=== PATIENT | female | born 1945 | race Caucasian/White ===

== ENCOUNTER 2017-05-27 13:33 | Emergency (ER) | payer MEDICARE, BC ==
[2017-05-27 13:50] VITALS: BP 140/68
--- NOTE | 2017-05-27 14:00 | UC ---
Throat Pain/Nasal Jabari HPI - HPI Summary HPI Summary: 72 YEAR OLD FEMALE PRESENTS WITH COMPLAINS OF COUGH AND CONGESTION. - History of Current Complaint Chief Complaint: UCRespiratory Stated Complaint: COUGH,SINUSES Time Seen by Provider: 05/27/17 13:59 - Allergies/Home Medications Allergies/Adverse Reactions: Allergies Allergy/AdvReac Type Severity Reaction Status Date / Time Ibuprofen [From Motrin] Allergy Severe Rash Unverified 05/27/17 13:50 Ciprofloxacin [From Cipro] Allergy body aches Verified 05/27/17 13:50 months latter PMH/Surg Hx/FS Hx/Imm Hx Previously Healthy: Yes - Surgical History Surgical History: Yes Surgery Procedure, Year, and Place: hysterectomy, lumpectomy, gallbladder, tonsillectomy - Family History Known Family History: Positive: Hypertension - Social History Alcohol Use: Weekly Alcohol Amount: glass of wine a day Substance Use Type: None Smoking Status (MU): Former Smoker When Did the Patient Quit Smoking/Using Tobacco: 1987 Review of Systems Constitutional: Negative Skin: Negative Eyes: Negative ENT: Sore Throat, Nasal Discharge, Sinus Congestion, Sinus Pain/Tenderness Respiratory: Cough Cardiovascular: Negative Gastrointestinal: Negative Genitourinary: Negative Motor: Negative Neurovascular: Negative Musculoskeletal: Negative Neurological: Negative Psychological: Negative All Other Systems Reviewed And Are Negative: Yes Physical Exam Triage Information Reviewed: Yes Vital Signs: Initial Vital Signs Temp 37.7 C 05/27/17 13:44 Pulse 73 05/27/17 13:44 Resp 18 05/27/17 13:44 BP 140/68 05/27/17 13:44 Pulse Ox 98 05/27/17 13:44 Eye Exam: Normal ENT: Positive: Pharyngeal erythema, Nasal congestion, Nasal drainage Dental Exam: Normal Neck exam: Normal Neck: Positive: 1 Respiratory: Positive: Rhonchi Cardiovascular Exam: Normal Abdominal Exam: Normal Musculoskeletal Exam: Normal Neurological Exam: Normal Psychological Exam: Normal Skin Exam: Normal Throat Pain/Nasal Course/Dx - Differential Dx/Diagnosis Provider Diagnoses: ALLERGIC RHINNITIS Discharge - Discharge Plan Condition: Stable Disposition: HOME Prescriptions: Azithromyxin BLAIRE (NF) [Z-Blaire (Zithromax) 250 mg tabs #6] 2 tab PO .TODAY, THEN 1 DAILY #6 tab Guaifenesin-Codeine [Cheratussin AC] 5 syp PO QID PRN #100 syp MDD 20 PRN Reason: Cough LoraTADine TAB(NF) [Claritin 10 MG TAB(NF)] 10 mg PO DAILY #30 tab Patient Education Materials: Sinusitis (ED), Acute Bronchitis (ED) Referrals: Brandi Rai MD [Primary Care Provider] - If Needed
--- NOTE | 2017-05-27 15:19 | UC ---
Progress - Progress Note Progress Note: asked to resend script for cough med in because it didn't go through resent
== END 2017-05-27 14:19 | disposition home or self-care (01) ==
LOC: UCCORT 13:33
DX: J30.9 Allergic rhinitis, unspecified (principal); Z88.6 Allergy status to analgesic agent; Z88.1 Allergy status to other antibiotic agents; Z87.891 Personal history of nicotine dependence
CPT/HCPCS: 99212; G0463

== ENCOUNTER 2018-03-22 13:57 | Emergency (ER) | payer MEDICARE, BC ==
[2018-03-22 14:17] VITALS: BP 138/59
--- NOTE | 2018-03-22 14:33 | UC ---
Throat Pain/Nasal Jabari HPI - HPI Summary HPI Summary: sinus pain and pressure x 1 week + nasal congestion , pnd, no cough no fever , no chills - History of Current Complaint Chief Complaint: UCGeneralIllness Stated Complaint: SINUS COMPLAINT Time Seen by Provider: 03/22/18 14:12 Hx Obtained From: Patient Onset/Duration: Gradual Onset, Lasting Days - 7, Still Present Severity: Moderate Pain Intensity: 0 Cough: None Associated Signs & Symptoms: Positive: Sinus Discomfort, Nasal Discharge. Negative: Dysphagia, FB Sensation, Drooling, Wheezing, Hoarseness, Fever, Vomiting, Rash - Allergies/Home Medications Allergies/Adverse Reactions: Allergies Allergy/AdvReac Type Severity Reaction Status Date / Time ibuprofen Allergy Intermediate Rash Verified 03/22/18 14:18 ciprofloxacin AdvReac Intermediate body aches Verified 03/22/18 14:18 PMH/Surg Hx/FS Hx/Imm Hx Previously Healthy: Yes - Surgical History Surgical History: Yes Surgery Procedure, Year, and Place: no hip or back surgs... - Family History Known Family History: Positive: Hypertension - Social History Alcohol Use: Weekly Alcohol Amount: glass of wine a day Substance Use Type: None Smoking Status (MU): Former Smoker When Did the Patient Quit Smoking/Using Tobacco: 1987 Review of Systems Constitutional: Negative Skin: Negative Eyes: Negative ENT: Nasal Discharge, Sinus Congestion, Sinus Pain/Tenderness Respiratory: Negative Is Patient Immunocompromised?: No All Other Systems Reviewed And Are Negative: Yes Physical Exam Triage Information Reviewed: Yes Appearance: Well-Appearing, No Pain Distress, Well-Nourished Vital Signs: Initial Vital Signs Temp 99.5 F 03/22/18 14:12 Pulse 73 03/22/18 14:12 Resp 16 03/22/18 14:12 BP 138/59 03/22/18 14:12 Pulse Ox 100 03/22/18 14:12 Vital Signs Reviewed: Yes Eye Exam: Normal Eyes: Positive: Conjunctiva Clear ENT: Positive: Normal ENT inspection, Hearing grossly normal, Pharynx normal, Nasal drainage, Sinus tenderness Neck exam: Normal Neck: Positive: Supple, Nontender, No Lymphadenopathy Respiratory: Positive: Chest non-tender, Lungs clear, Normal breath sounds Cardiovascular: Positive: RRR, No Murmur, Pulses Normal Throat Pain/Nasal Course/Dx - Differential Dx/Diagnosis Provider Diagnoses: sinusitis Discharge - Sign-Out/Discharge Documenting (check all that apply): Discharge/Admit/Transfer - Discharge Plan Condition: Stable Disposition: HOME Prescriptions: Amoxicillin/Clavulanate TAB* [Augmentin TAB 875*] 875 mg PO BID #20 tab Fluticasone NASAL SPRAY 50MCG* [Flonase NASAL SPRAY 50MCG*] 2 spray BOTH NARES DAILY #1 btl Patient Education Materials: Sinusitis (ED) Referrals: Brandi Rai MD [Primary Care Provider] - If Needed - Billing Disposition and Condition Condition: STABLE Disposition: HOME
== END 2018-03-22 14:39 | disposition home or self-care (01) ==
LOC: UCCORT 13:57
DX: J32.9 Chronic sinusitis, unspecified (principal); Z88.6 Allergy status to analgesic agent; Z88.3 Allergy status to other anti-infective agents; Z82.49 Family history of ischemic heart disease and other diseases of the circulatory system; Z87.891 Personal history of nicotine dependence
CPT/HCPCS: 99212; G0463

== ENCOUNTER 2018-04-21 14:41 | Emergency (ER) | payer MEDICARE, BC ==
--- NOTE | 2018-04-21 15:00 | UC ---
Complaint Female HPI - HPI Summary HPI Summary: 73 yo female presents with urinary burning and frequency for the last 4-5 days. Says that her last UTI was about 3 years ago and this feels the same. She denies fever, chills, abdominal pain, n/v/d/c, vaginal bleeding or discharge. - History Of Current Complaint Stated Complaint: URINARY Time Seen by Provider: 04/21/18 15:00 Hx Obtained From: Patient Onset/Duration: Gradual Onset Timing: Constant Severity Initially: Mild Severity Currently: Mild Pain Intensity: 3 Pain Scale Used: 0-10 Numeric - Allergies/Home Medications Allergies/Adverse Reactions: Allergies Allergy/AdvReac Type Severity Reaction Status Date / Time ibuprofen Allergy Intermediate Rash Verified 04/21/18 14:59 ciprofloxacin AdvReac Intermediate body aches Verified 04/21/18 14:59 Home Medications: Home Medications LoraTADine TAB(NF) [Claritin 10 MG TAB(NF)] 10 mg PO DAILY PRN 04/21/18 [ History Confirmed 04/21/18] PMH/Surg Hx/FS Hx/Imm Hx Cardiovascular History: Hypertension - Surgical History Surgical History: Yes Surgery Procedure, Year, and Place: no hip or back surgs... - Family History Known Family History: Positive: Hypertension - Social History Occupation: Retired Lives: With Family Alcohol Use: Weekly Alcohol Amount: glass of wine a day Substance Use Type: None Smoking Status (MU): Former Smoker When Did the Patient Quit Smoking/Using Tobacco: 1987 Review of Systems Constitutional: Negative Skin: Negative Respiratory: Negative Cardiovascular: Negative Gastrointestinal: Negative Genitourinary: Dysuria, Frequency, Urgency Neurovascular: Negative Neurological: Negative Psychological: Negative All Other Systems Reviewed And Are Negative: Yes Physical Exam - Summary Physical Exam Summary: GENERAL: NAD. WDWN. No pain distress. SKIN: No rashes, sores, lesions, or open wounds. NECK: Supple. Nontender. No lymphadenopathy. CHEST: CTAB. No r/r/w. No accessory muscle use. Breathing comfortably and in no distress. CV: Pulses intact. Brisk cap refill. ABDOMEN: Soft. NTTP. No distention or guarding. No organomegaly. No CVA tenderness. Bowel sounds present NEURO: Alert. CN II-XII grossly intact. PSYCH: Age appropriate behavior. Triage Information Reviewed: Yes Vital Signs: Vital Signs: Temp Pulse Resp BP Pulse Ox 98.4 F 76 18 128/78 97 04/21/18 15:01 04/21/18 15:01 04/21/18 15:01 04/21/18 15:01 04/21/18 15:01 Laboratory Tests 04/21/18 15:17 POC Urine Color Yellow POC Urine Clarity Cloudy POC Urine pH 5.5 POC Ur Specif [place] 1.015 POC Urine Protein Negative POC Ur Glucose (UA) Negative POC Urine Ketones Negative POC Urine Blood Trace-intact A POC Urine Nitrite Negative POC Urine Bilirubin Negative POC Urine Urobilinogen 0.2 POC U Leukocyte Esteras 2+ A Complaint Female Dx - Course Course Of Treatment: UA with signs of infection. Will treat with macrobid and send for culture. - Differential Dx/Diagnosis Provider Diagnoses: UTI Discharge - Sign-Out/Discharge Documenting (check all that apply): Discharge/Admit/Transfer - Discharge Plan Condition: Stable Disposition: HOME Prescriptions: Nitrofurantoin Monohyd/M-Cryst [Macrobid 100 mg Capsule] 100 mg PO BID #10 cap Patient Education Materials: Urinary Tract Infection in Women (DC) Referrals: Brandi Rai MD [Primary Care Provider] - Additional Instructions: If you develop a fever, shortness of breath, chest pain, new or worsening symptoms - please call your PCP or go to the ED. - Billing Disposition and Condition Condition: STABLE Disposition: Home
[2018-04-21 15:09] VITALS: BP 128/78
--- NOTE | 2018-04-23 07:05 | UC ---
- Progress Note Progress Note: NOTIFY PT NO UTI STOP ANTIBIOTIC RECHECK IF STILL SYMPTOMATIC Discharge - Sign-Out/Discharge Documenting (check all that apply): Post-Discharge Follow Up - Discharge Plan Condition: Stable Disposition: HOME Prescriptions: Nitrofurantoin Monohyd/M-Cryst [Macrobid 100 mg Capsule] 100 mg PO BID #10 cap Patient Education Materials: Urinary Tract Infection in Women (DC) Referrals: Brandi Rai MD [Primary Care Provider] - Additional Instructions: If you develop a fever, shortness of breath, chest pain, new or worsening symptoms - please call your PCP or go to the ED. - Billing Disposition and Condition Condition: STABLE Disposition: Home
== END 2018-04-21 15:35 | disposition home or self-care (01) ==
LOC: UCCORT 14:41
DX: N39.0 Urinary tract infection, site not specified (principal); Z88.6 Allergy status to analgesic agent; Z88.1 Allergy status to other antibiotic agents; I10 Essential (primary) hypertension; Z87.891 Personal history of nicotine dependence
CPT/HCPCS: 81003; 87086; 99212; G0463

== ENCOUNTER 2018-10-10 15:14 | Emergency (ER) | payer MEDICARE, BC ==
[2018-10-10 15:36] VITALS: BP 110/80
--- NOTE | 2018-10-10 15:53 | UC ---
UC General HPI - HPI Summary HPI Summary: PT STATES SHE DEVELOPED A SORE THROAT AND THEN COUGH WITH CONGESTION 3 DAYS AGO. THE SORE THROAT RESOLVED; HOWEVER, THE COUGH IS MUCH WORSE WITH CHEST CONGESTION AND YELLOW SPUTUM. PT NOTES THIS IS USUALLY JUST A COLD AND GOES AWAY BUT THIS IS MUCH WORSE THAN THAT. SHE TRIED TO SEE HERE PCP BUT WAS NOT ABLE TO GET IN THERE. PT NOTED A FEVER AT ONSET. NO CP, SOB OR WHEEZING. NO CHRONIC LUNG DISEASE. - History of Current Complaint Chief Complaint: UCRespiratory Stated Complaint: SINUS COMPLAINT, CONGESTION Time Seen by Provider: 10/10/18 15:31 Hx Obtained From: Patient Onset/Duration: Gradual Onset Pain Intensity: 0 Associated Signs & Symptoms: Negative: Abdominal Pain, Diarrhea, Nausea, Vomiting - Allergy/Home Medications Allergies/Adverse Reactions: Allergies Allergy/AdvReac Type Severity Reaction Status Date / Time ciprofloxacin AdvReac Intermediate body aches Verified 10/10/18 15:31 ibuprofen AdvReac Intermediate Rash Verified 10/10/18 15:31 PMH/Surg Hx/FS Hx/Imm Hx - Additional Past Medical History Additional PMH: HEMACHROMATOSIS, ESSENTIAL TREMOR, LEG EDEMA. - Surgical History Surgical History: Yes Surgery Procedure, Year, and Place: back surgery. gallbladder removal 1985. hysterectomy 1987 - Family History Known Family History: Positive: Hypertension - Social History Occupation: Retired Alcohol Use: Weekly Alcohol Amount: glass of wine a day Substance Use Type: None Smoking Status (MU): Former Smoker When Did the Patient Quit Smoking/Using Tobacco: 1987 - Immunization History Vaccination Up to Date: Yes Review of Systems All Other Systems Reviewed And Are Negative: Yes Constitutional: Positive: Negative Skin: Positive: Negative Eyes: Positive: Negative ENT: Positive: Sore Throat Respiratory: Positive: Cough. Negative: Shortness Of Breath Cardiovascular: Negative: Palpitations, Chest Pain Gastrointestinal: Negative: Abdominal Pain, Vomiting, Diarrhea, Nausea Genitourinary: Positive: Negative Motor: Positive: Negative Neurovascular: Positive: Negative Musculoskeletal: Positive: Negative Neurological: Positive: Negative Psychological: Positive: Negative Physical Exam Triage Information Reviewed: Yes Appearance: Well-Appearing Vital Signs: Initial Vital Signs Temp 97.4 F 10/10/18 15:30 Pulse 79 10/10/18 15:30 Resp 20 10/10/18 15:30 BP 110/80 10/10/18 15:30 Pulse Ox 99 10/10/18 15:30 Vital Signs Reviewed: Yes Eyes: Positive: Conjunctiva Clear ENT: Positive: Pharynx normal, TMs normal. Negative: Pharyngeal erythema, Nasal drainage Neck: Positive: Supple, Nontender, No Lymphadenopathy Respiratory: Positive: Lungs clear, No respiratory distress, Other: - Cough is congested. Cardiovascular: Positive: RRR, No Murmur Abdomen Description: Positive: Nontender, No Organomegaly, Soft. Negative: Distended, Guarding Bowel Sounds: Positive: Present Musculoskeletal: Positive: ROM Intact, No Edema Neurological: Positive: Alert Psychological: Positive: Age Appropriate Behavior Skin Exam: Normal Course/Dx - Course Course Of Treatment: non toxic, not hypoxic; however, 73 yo with comorbid illnesses and abrupt worsening cough, chest congestion and purulent sputum thus will cover for presumptive bacterial infection. - Diagnoses Provider Diagnosis: Cough Discharge - Sign-Out/Discharge Documenting (check all that apply): Patient Departure All imaging exams completed and their final reports reviewed: No Studies - Discharge Plan Condition: Stable Disposition: HOME Prescriptions: DOXYcycline CAP(*) [DOXYcycline 100MG CAP(*)] 100 mg PO BID 7 Days #14 cap Patient Education Materials: Acute Cough (ED) Additional Instructions: HOLD OFF ON YOUR MULTIVITAMIN WHILE TAKING THE ANTIBIOTIC. YOU MAY RESUME IT ONCE THE ANTIBIOTIC IS COMPLETE. - Billing Disposition and Condition Condition: STABLE Disposition: Home
== END 2018-10-10 16:10 | disposition home or self-care (01) ==
LOC: UCCORT 15:14
DX: R05 Cough (principal); J02.9 Acute pharyngitis, unspecified; R09.81 Nasal congestion; Z88.6 Allergy status to analgesic agent; Z88.1 Allergy status to other antibiotic agents; Z87.891 Personal history of nicotine dependence
CPT/HCPCS: 99212; G0463

== ENCOUNTER 2019-01-26 06:21 | Day surgery (SDC) | payer MEDICARE, BC ==
[2019-01-26] MEDS ORDERED: Bupivacaine 0.25% SDV PF* 10 ML VIAL INJ ONE (07:06)
[2019-01-26] MEDS ORDERED: Lidocaine 1% MPF wEPI 200,000* 30 ML SDV ONE (07:14)
[2019-01-26 08:11] VITALS: BP 135/74
--- NOTE | 2019-01-26 11:13 | OP ---
DATE OF OPERATION: 01/26/19 [facility] DATE OF : 41 SURGEON: Thomas Chong MD PARKING PATROLLER: JOANA Meraz ANESTHESIOLOGIST: None. ANESTHESIA: Local only with 1% lidocaine with epinephrine and bicarbonate. PRE-OP DIAGNOSES: 1. Right ring trigger finger. 2. Right ring finger tendon sheath nodule. POST-OP DIAGNOSES: 1. Right ring trigger finger. 2. Right ring finger tendon sheath nodule. OPERATIVE PROCEDURE: 1. Right ring trigger finger release. 2. Excision of right ring finger tendon sheath nodule. INDICATIONS: Cherry has the trigger finger with very large associated nodule over the A1 coco. We talked about risks and benefits. She had wanted to have it treated surgically. ESTIMATED BLOOD LOSS: 2 mL. COMPLICATIONS: None. FINDINGS: See above and below. DESCRIPTION OF PROCEDURE: Cherry was seen in the preoperative holding area. The correct site, side, and procedure were identified. I then infiltrated the operative area with 1% lidocaine with epinephrine and bicarbonate. We came back to the operating room. The arm was prepped and draped in the usual fashion. I made a 1-cm longitudinal incision over the area. Dissection was carried down and flaps were bluntly raised off the nodule. Ragnell retractors were placed. I went ahead and excised the nodule with the 15 blade and this was handed off as a specimen. I then released the A1 coco longitudinally in its entirety with the 15 blade followed by the tenotomy scissors. Once I had completed the release proximally and distally, I irrigated out the wound. The skin was closed with 4-0 nylon suture. Wounds were dressed with soft dressings and she was taken to the recovery room in stable condition. [id number]/[facility] #: [id number] [facility]
== END 2019-01-26 08:32 | disposition home or self-care (01) ==
LOC: OREAST 06:21
PROVIDERS: ATTEND Orthopaedic Surgery Hand Surgery
DX: M65.341 Trigger finger, right ring finger (principal); M67.441 Ganglion, right hand; Z85.3 Personal history of malignant neoplasm of breast; M19.90 Unspecified osteoarthritis, unspecified site
CPT/HCPCS: 88304; J2001; J3490